=== PATIENT | female | born 1965 | race Caucasian/White ===

== ENCOUNTER 2022-06-03 14:19 | Inpatient (IN) ==
[2022-06-03] MEDS ORDERED: EPINEPHrine 1 MG/ML VIAL ONE (14:32)
[2022-06-03] MEDS ORDERED: methylPREDNISolone SOD SUC 125 MG/2 ML VIAL ONE (14:33)
[2022-06-03] MEDS ORDERED: diphenhydrAMINE 50 MG/1 ML VIAL ONE (14:33)
[2022-06-03] MEDS ORDERED: FAMOTIDINE 20 MG/2 ML VIAL IV ONE (14:33)
[2022-06-03] MEDS ORDERED: EPINEPHrine 1 MG/ML VIAL SUBCUT STA ×2 (14:34→16:03)
[2022-06-03] MEDS ORDERED: methylPREDNISolone SOD SUC 125 MG/2 ML VIAL IV STA (14:34)
[2022-06-03] MEDS ORDERED: diphenhydrAMINE 50 MG/1 ML VIAL IV STA (14:34)
[2022-06-03] MEDS ORDERED: FAMOTIDINE 20 MG/2 ML VIAL IV STA (14:34)
[2022-06-03] MEDS ORDERED: SODIUM CHLORIDE 0.9% 1,000 ML IV ONE (14:34)
[2022-06-03] MEDS ORDERED: ALBUTEROL 2.5 MG/3 ML NEB RESP TX PRN (16:05)
[2022-06-03] MEDS ORDERED: diphenhydrAMINE 50 MG/1 ML VIAL IV SCH (16:30)
[2022-06-03 16:48] LABS: Basophils % 0.3 % (0.0-0.8); Eosinophils # 0.1 10*3/uL (0.0-0.87); Eosinophils % 1.6 % (0.00-10.9); Hematocrit 43.5 VOL% (35.7-47.0); Hemoglobin 14.1 GM/DL (12.0-16.0); Immature Granulocytes % 0.3 %; Immature Granulocytes Absolute 0.03 #; Lymphocytes # 5.1 10*3/uL (1.4-4.0); Lymphocytes % 57.3 % (21.3-54.2); Mean Corpuscular HGB Conc 32.4 GM/DL (32-36); Mean Corpuscular Volume 94.2 FL (87-102); Mean Platelet Volume 9.9 FL (9.6-12.0); Monocytes # 0.5 10*3/uL (0.11-0.8); Monocytes % 5.4 % (1.7-12.7); Neutrophils % 35.1 % (38.7-73.9); Platelet Count 392 T/CUMM (130-400); Red Blood Count 4.62 MC/CUMM (3.8-5.5); Red Cell Distribution Width 12.6 % (9.3-17.3); White Blood Count 8.81 T/CUMM (4-12)
[2022-06-03 17:13] LABS: Eosinophils 1 % (0-10); Lymphocytes 59 % (20-55); Platelet Estimate Adequate; Reactive Lymphocytes Few; Total Cells Counted 100
[2022-06-03 17:15] LABS: Alanine Aminotransferase 29 U/L (13-56); Alkaline Phosphatase 69 U/L (45-117); Aspartate Amino Transferase 21 U/L (0-37); Bilirubin,Total < 0.39 MG/DL (0.20-1.00); Blood Urea Nitrogen 26 MG/DL (7-18); Calcium 9.4 MG/DL (8.5-10.1); Carbon Dioxide 23 MMOL/L (21-32); Chloride 105 MMOL/L (98-107); Glucose 111 MG/DL (74-106); Osmolality,Calculated 284.4 MOS/KG (273-304); Potassium 3.7 MMOL/L (3.5-5.1); Sodium 140 MMOL/L (136-145); Total Protein 7.6 G/DL (6.4-8.2)
[2022-06-03 18:16] VITALS: BP 110/80
[2022-06-03] MEDS: INSULIN LISPRO 100 UNIT/ML SUBCUT SCH (20:30)
[2022-06-03] MEDS: methylPREDNISolone SOD SUC 40 MG/1 ML VIAL IV SCH (20:31)
[2022-06-03] MEDS: diphenhydrAMINE CAP 25 MG CAPSULE PO SCH (20:31)
[2022-06-03] MEDS ORDERED: FAMOTIDINE 20 MG TABLET PO SCH (21:00)
[2022-06-04] MEDS: INSULIN LISPRO 100 UNIT/ML SUBCUT SCH ×3 (01:43→07:30)
[2022-06-04] MEDS: diphenhydrAMINE CAP 25 MG CAPSULE PO SCH (04:03)
[2022-06-04] MEDS: methylPREDNISolone SOD SUC 40 MG/1 ML VIAL IV SCH (04:11)
[2022-06-04 04:52] LABS: Basophils % 0.2 % (0.0-0.8); Hematocrit 37.2 VOL% (35.7-47.0); Hemoglobin 12.4 GM/DL (12.0-16.0); Immature Granulocytes % 0.9 %; Immature Granulocytes Absolute 0.12 #; Lymphocytes # 1.1 10*3/uL (1.4-4.0); Lymphocytes % 8.8 % (21.3-54.2); Mean Corpuscular HGB Conc 33.3 GM/DL (32-36); Mean Corpuscular Volume 92.8 FL (87-102); Mean Platelet Volume 9.4 FL (9.6-12.0); Monocytes # 0.2 10*3/uL (0.11-0.8); Monocytes % 1.6 % (1.7-12.7); Neutrophils % 88.5 % (38.7-73.9); Platelet Count 289 T/CUMM (130-400); Red Blood Count 4.01 MC/CUMM (3.8-5.5); Red Cell Distribution Width 12.3 % (9.3-17.3); White Blood Count 12.83 T/CUMM (4-12)
[2022-06-04 05:14] LABS: Albumin 3.4 G/DL (3.4-5.0); Bilirubin,Total 0.4 MG/DL (0.20-1.00); Calcium 8.9 MG/DL (8.5-10.1); Osmolality,Calculated 284.3 MOS/KG (273-304); Phosphorous 2.6 MG/DL (2.5-4.9); Potassium 4.1 MMOL/L (3.5-5.1); Total Protein 6.9 G/DL (6.4-8.2)
[2022-06-04] MEDS ORDERED: metFORMIN 500 MG TABLET PO SCH (09:00)
== END 2022-06-04 09:10 | disposition home or self-care (01) | DRG 916 ==
LOC: N.ED 14:19 → N.EDINP 16:04 → N.ICU 16:55
PROVIDERS: ADMIT Internal Medicine; ATTEND Internal Medicine